=== PATIENT | female | born 1990 | race African-American/Black ===

== ENCOUNTER 2018-01-30 14:13 | Emergency (ER) | payer SELFPAY ==
[~2018-01-30] VITALS: Ht 177.8 cm; Wt 73.0 kg
[2018-01-30] MEDS ORDERED: KETOROLAC 30MG/ML VIAL IV ONE (15:00)
[2018-01-30 15:40] VITALS: BP 128/80
== END 2018-01-30 15:47 | disposition home or self-care (01) ==
LOC: ER 14:26
DX: O99.512 Diseases of the respiratory system complicating pregnancy, second trimester (principal); R09.1 Pleurisy; Z3A.20 20 weeks gestation of pregnancy
CPT/HCPCS: 96374; 99284; J1885; Z7610